=== PATIENT | female | born 1995 | race African-American/Black ===

== ENCOUNTER 2017-02-11 09:49 | Emergency (ER) | payer OTHER ==
[~2017-02-11] VITALS: Ht 182.9 cm; Wt 100.0 kg
[2017-02-11] MEDS ORDERED: PENICILLIN G BENZATHINE 1,200,000 UNITS/2ML SYR IM ONE (13:00)
[2017-02-11] MEDS ORDERED: KETOROLAC 60MG/2ML VIAL IM ONE (13:00)
[2017-02-11 13:17] VITALS: BP 128/70
== END 2017-02-11 13:54 | disposition home or self-care (01) ==
LOC: ER 11:57
DX: J02.0 Streptococcal pharyngitis (principal); J45.909 Unspecified asthma, uncomplicated; R56.9 Unspecified convulsions
CPT/HCPCS: 96372; 99284; J0561; J1885

== ENCOUNTER 2019-03-28 13:31 | Emergency (ER) | payer OTHER ==
[~2019-03-28] VITALS: Ht 177.8 cm; Wt 101.0 kg
[2019-03-28 13:33] VITALS: BP 148/75
== END 2019-03-28 14:38 | disposition home or self-care (01) ==
LOC: ER 13:31
DX: J06.9 Acute upper respiratory infection, unspecified (principal); G40.909 Epilepsy, unspecified, not intractable, without status epilepticus; J45.909 Unspecified asthma, uncomplicated
CPT/HCPCS: 99283

== ENCOUNTER 2022-10-26 19:34 | Emergency (ER) | payer OTHER ==
[~2022-10-26] VITALS: Ht 182.9 cm; Wt 123.8 kg
[2022-10-26 19:40] VITALS: BP 136/52
[2022-10-26] MEDS ORDERED: CEPH500C2 MT (21:31)
== END 2022-10-26 21:40 | disposition home or self-care (01) ==
LOC: ER 20:34
DX: L73.9 Follicular disorder, unspecified (principal); J45.909 Unspecified asthma, uncomplicated
CPT/HCPCS: 99283

== ENCOUNTER 2022-11-07 22:53 | Emergency (ER) | payer OTHER ==
[~2022-11-07] VITALS: Ht 182.9 cm; Wt 123.0 kg
[~2022-11-07 22:53] MED LIST: CEPH500C2 MT
[2022-11-07 22:59] VITALS: BP 139/83
[2022-11-07] MEDS ORDERED: METHOCARBAMOL 500MG TABLET PO ONE (23:30)
[2022-11-07] MEDS ORDERED: ACETAMINOPHEN 325MG TABLET PO ONE (23:30)
== END 2022-11-08 01:25 | disposition home or self-care (01) ==
LOC: ER 22:53
DX: M54.9 Dorsalgia, unspecified (principal); R56.9 Unspecified convulsions; J45.909 Unspecified asthma, uncomplicated
CPT/HCPCS: 71045; 81025; 99283; Z7610

== ENCOUNTER 2023-05-23 00:09 | Emergency (ER) | payer OTHER ==
[~2023-05-23] VITALS: Ht 182.9 cm; Wt 122.0 kg
[2023-05-23 00:21] VITALS: BP 152/66
[2023-05-23 00:56] LABS: BASOPHILS % 0.3 % (0.0-2.0); DIFFERENTIAL COMMENT 0; EOSINOPHILS % 2.7 % (0.0-5.0); HEMATOCRIT. 33.8 % (36.0-48.0); HEMOGLOBIN. 10.9 g/dL (12.0-16.0); MEAN CORPUSCULAR HEMOGLOBIN 23.6 pg (28.0-32.0); MEAN CORPUSCULAR HGB CONC 32.3 g/dL (31.0-37.0); MEAN CORPUSCULAR VOLUME 73.2 fL (81.0-99.0); MEAN PLATELET VOLUME 7.5 fl (7.4-10.4); MONOCYTES % 6.5 % (2.0-8.0); NEUTROPHILS % 75.5 % (40.0-76.0); PLATELET 266 x1000/uL (130-400); RED BLOOD CELL COUNT 4.61 mill/uL (4.2-5.4); RED CELL DISTRIBUTION WIDTH 15.1 % (11.6-14.6)
[2023-05-23 00:59] LABS: CHLORIDE 103 mEq/L (98-107); INDEX HEMOLYSI 1 (1-3); INDEX ICTERIC 1 (1-4); INDEX LIPEMIC 1 (1-3); SODIUM 131 mEq/L (136-145)
[2023-05-23 01:00] LABS: CLARITY URINE CLEAR (CLEAR); COLOR URINE YELLOW (YELLOW); GLUCOSE URINE NEGATIVE (NEGATIVE); KETONES URINE NEGATIVE (NEGATIVE); LEUKOCYTE ESTERASE URINE NEGATIVE (NEGATIVE); NITRITE URINE NEGATIVE (NEGATIVE); OCCULT BLOOD URINE NEGATIVE (NEGATIVE); PH URINE 6.5 (4.5-8.0); PROTEIN URINE NEGATIVE (NEGATIVE); SPECIFIC GRAVITY URINE 1.006 (1.005-1.030); UROBILINOGEN URINE 0.2 E.U./dL (0.2-1.0)
[2023-05-23 01:21] LABS: ALANINE AMINOTRANSFERASE 23 IU/L (13-61); ALBUMIN 3.8 g/dL (3.4-5.0); ASPARTATE AMINOTRANSFERASE 16 IU/L (15-37); BILIRUBIN TOTAL 0.3 mg/dL (0.1-1.0); CALCIUM 9.4 mg/dL (8.5-10.1); CARBON DIOXIDE 28 mEq/L (21-32); CREATININE 0.8 mg/dL (0.6-1.3); GLUCOSE 99 mg/dL (70-105); PROTEIN TOTAL 8.5 g/dL (6.0-8.3); TROPONIN I HIGH SENSITIVITY 12 ng/L (<54); UREA NITROGEN BLOOD 11 mg/dL (7-21)
[2023-05-23 04:00] LABS: PARTIAL THROMBOPLASTIN TIME 27.6 sec (23.4-31.0); PROTHROMBIN TIME 10.7 sec (9.6-11.0)
[2023-05-23] MEDS ORDERED: PREDNISONE 20MG TABLET PO STA (06:02)
[2023-05-23] MEDS ORDERED: ALBUTEROL (0.083%) 2.5MG/3ML NEB HHN STA (06:02)
[2023-05-23] MEDS ORDERED: IPRATROPIUM BROMIDE (0.02%) 0.5MG/2.5ML NEB HHN STA (06:02)
[2023-05-23 07:55] VITALS: PULSE 80; RESP 24; O2SAT 94
[2023-05-23] MEDS ORDERED: P50 PO (09:30)
[2023-05-23] MEDS ORDERED: ALBU6.7H3 INH (09:30)
[2023-05-23 09:45] VITALS: PULSE 118; RESP 24; TEMP 98.7
== END 2023-05-23 09:47 | disposition home or self-care (01) ==
LOC: ER 00:09
DX: J45.901 Unspecified asthma with (acute) exacerbation (principal)
CPT/HCPCS: 80053; 81003; 81025; 85025; 85610; 85730; 84484; 36415; 71045; 93005; 94644; 99285; J7512; Z7610